=== PATIENT | male | born 1965 | race Caucasian/White ===

== ENCOUNTER 2020-09-08 19:45 | Emergency (ER) | payer OTHER, MEDICAID ==
[~2020-09-08] VITALS: Ht 180.3 cm; Wt 88.5 kg
[2020-09-08 19:50] VITALS: BP_SYST 204
[2020-09-08] MEDS ORDERED: LOSA50TA3 PO (19:59)
[2020-09-08] MEDS ORDERED: PRAV40TA PO (19:59)
[2020-09-08] MEDS ORDERED: METO50TA7 PO (20:00)
[2020-09-08] MEDS ORDERED: ASPI-1155 PO (20:00)
[2020-09-08] MEDS ORDERED: GLU500 PO (20:00)
[2020-09-08 20:46] VITALS: BP_SYST 174
== END 2020-09-08 20:45 | disposition home or self-care (01) ==
LOC: SED 19:45
DX: R07.89 Other chest pain (principal); I10 Essential (primary) hypertension; E11.9 Type 2 diabetes mellitus without complications; Z79.899 Other long term (current) drug therapy; Z79.82 Long term (current) use of aspirin; Z88.2 Allergy status to sulfonamides
CPT/HCPCS: 93005; 99283